=== PATIENT | male | born 2000 | race Two or more races ===

== ENCOUNTER 2018-11-30 18:39 | Emergency (ER) | payer SELFPAY ==
[~2018-11-30] VITALS: Ht 165.1 cm; Wt 86.2 kg
[2018-11-30 19:36] VITALS: BP 148/90
[2018-11-30] MEDS ORDERED: NEOMYCIN-BACITRACIN-POLYM UNITDOSE PKG TOP OINT TOP ONE (19:58)
[2018-11-30] MEDS ORDERED: BACITRACIN INJ 50000 UNIT VIAL TOP ONE (20:00)
[2018-11-30] MEDS ORDERED: TETANUS-DIPTH-ACEL PERTUSSIS 0.5ML SYRG IM ONE (20:00)
== END 2018-11-30 20:04 | disposition home or self-care (01) ==
LOC: ER 18:44
DX: S81.011A Laceration without foreign body, right knee, initial encounter (principal); V28.0XXA Motorcycle driver injured in noncollision transport accident in nontraffic accident, initial encounter; Y93.89 Activity, other specified; Y99.8 Other external cause status; Y92.89 Other specified places as the place of occurrence of the external cause
CPT/HCPCS: 90471; 90715